=== PATIENT | female | born 1985 | race Caucasian/White ===

== ENCOUNTER → 2016-10-31 | Outpatient (REF) | payer OTHER ==
[~2016-10-31] MED LIST: ACET50TA PO; IBUP60TA PO; LEVO137T2 PO; PREN27TA3 PO
== END ==
LOC: M LAB REF 13:11
PROVIDERS: ATTEND Advanced Practice Midwife
DX: Z12.4 Encounter for screening for malignant neoplasm of cervix (principal)

== ENCOUNTER → 2017-09-11 | Outpatient (CLI) | payer OTHER | LOC: M SMT 14:44 | DX: Z34.82 Encounter for supervision of other normal pregnancy, second trimester (principal); Z3A.19 19 weeks gestation of pregnancy | CPT/HCPCS: 76811 ==

== ENCOUNTER → 2017-10-30 | Outpatient (CLI) | payer OTHER ==
[2017-10-30 17:56] LABS: GLUCOSE CHALLENGE TEST 1 HOUR 121 MG/DL (LESS THAN 140)
[2017-10-30 17:56] LABS: FREE T4 1.08 NG/DL (0.76-1.46)
[2017-10-30 18:28] LABS: HEMATOCRIT 33.1 % (36.0-47.0); HEMOGLOBIN 10.9 g/dl (12.0-16.0); MEAN CORPUSCULAR HEMOGLOBIN 27.9 pg (27.0-33.0); MEAN CORPUSCULAR HGB CONC 32.9 g/dl (32.0-36.5); MEAN CORPUSCULAR VOLUME 84.9 fl (80.0-96.0); PLATELET COUNT, AUTOMATED 209 10^3/uL (150-450); WHITE BLOOD COUNT 9.1 10^3/uL (4.0-10.0)
[2017-10-31 08:53] LABS: TYPE AND SCREEN 1 1
== END ==
LOC: M SMT 13:08
DX: Z36.89 Encounter for other specified antenatal screening (principal); Z3A.27 27 weeks gestation of pregnancy
CPT/HCPCS: 82950

== ENCOUNTER → 2018-01-03 | Outpatient (REF) | payer OTHER | LOC: M LAB REF 13:13 | DX: Z34.83 Encounter for supervision of other normal pregnancy, third trimester (principal) ==

== ENCOUNTER 2018-01-26 10:27 | Outpatient (CLI) | payer OTHER ==
[2018-01-26 11:29] LABS: HEMOGLOBIN 12.4 g/dl (12.0-15.5); MEAN CORPUSCULAR HEMOGLOBIN 27.3 pg (27.0-33.0); MEAN CORPUSCULAR HGB CONC 33.5 g/dl (32.0-36.5); MEAN CORPUSCULAR VOLUME 81.5 fl (80.0-96.0); PLATELET COUNT, AUTOMATED 208 10^3/uL (150-450); RED BLOOD COUNT 4.54 10^6/uL (4.00-5.40); RED CELL DISTRIBUTION WIDTH 17.2 % (11.5-14.5); WHITE BLOOD COUNT 11.4 10^3/uL (4.0-10.0)
[2018-01-26 11:40] LABS: INR 0.93; PROTHROMBIN TIME 12.5 SECONDS (12.4-14.5)
[2018-01-26 11:41] LABS: FIBRINOGEN 569 MG/DL (221-452)
[2018-01-26] MEDS: ACETAMINOPHEN 500 MG TAB PO (13:25)
== END 2018-01-26 15:15 | disposition home or self-care (01) ==
LOC: M LDO 10:27
DX: Z04.3 Encounter for examination and observation following other accident (principal); O99.89 Other specified diseases and conditions complicating pregnancy, childbirth and the puerperium; W19.XXXA Unspecified fall, initial encounter; Y92.89 Other specified places as the place of occurrence of the external cause; Y93.89 Activity, other specified; Y99.8 Other external cause status; Z3A.39 39 weeks gestation of pregnancy
CPT/HCPCS: 59025

== ENCOUNTER → 2022-01-31 | Outpatient (CLI) | payer OTHER ==
[~2022-01-31] MED LIST changes: -ACET50TA PO; +IBUP-1114 PO; +IBUP600T42 PO; -IBUP60TA PO; +IRON50TA PO; +MAPA500T2 PO
== END ==
LOC: M WHC 15:03
PROVIDERS: ATTEND Advanced Practice Midwife
DX: N92.4 Excessive bleeding in the premenopausal period (principal)

== ENCOUNTER → 2022-05-04 | Outpatient (REF) | payer OTHER | LOC: M SFHCWAGY 17:31 | PROVIDERS: ATTEND Obstetrics & Gynecology | DX: Z12.4 Encounter for screening for malignant neoplasm of cervix (principal) | CPT/HCPCS: 87624; G0123 ==

== ENCOUNTER → 2023-04-11 | Outpatient (REF) | payer OTHER ==
[~2023-04-11] MED LIST changes: +LORY1TAB2 PO
[2023-04-11 14:33] LABS: CLOSTRIDIUM DIFFICILE PCR NEGATIVE (NEGATIVE)
== END ==
LOC: M LAB REF 12:43
PROVIDERS: ATTEND Internal Medicine Gastroenterology
DX: R19.7 Diarrhea, unspecified (principal)

== ENCOUNTER 2023-04-23 08:25 | Day surgery (SDC) | payer OTHER ==
[~2023-04-23] VITALS: Ht 172.7 cm; Wt 98.0 kg
[~2023-04-23 08:25] MED LIST changes: +NS 1,000 ML IV ONE
[2023-04-23 10:37] VITALS: TEMP 97.9
[2023-04-23 11:18] VITALS: BP 135/88; O2SAT 100
== END 2023-04-23 11:31 | disposition home or self-care (01) ==
LOC: M OPP 08:25
PROVIDERS: ATTEND Internal Medicine Gastroenterology
DX: Q43.8 Other specified congenital malformations of intestine (principal); K64.8 Other hemorrhoids; E03.9 Hypothyroidism, unspecified; K58.9 Irritable bowel syndrome, unspecified; Z79.899 Other long term (current) drug therapy; Z83.3 Family history of diabetes mellitus; Z82.49 Family history of ischemic heart disease and other diseases of the circulatory system; Z81.8 Family history of other mental and behavioral disorders; Z83.49 Family history of other endocrine, nutritional and metabolic diseases

== ENCOUNTER → 2023-05-28 | Outpatient (REF) | payer OTHER ==
[~2023-05-28] MED LIST changes: -NS 1,000 ML IV ONE
[2023-05-28 18:02] LABS: APPEARANCE, URINE CLEAR (CLEAR); BACTERIA, URINE AUTO 1+ (NEGATIVE); BILIRUBIN, URINE AUTO NEGATIVE (NEGATIVE); BLOOD, URINE BLOOD NEGATIVE (NEGATIVE); COLOR, URINE STRAW (YELLOW); GLUCOSE, URINE (UA) AUTO NEGATIVE (NEGATIVE); KETONE, URINE AUTO NEGATIVE (NEGATIVE); LEUKOCYTE ESTERASE, URINE AUTO NEGATIVE (NEGATIVE); NITRITE, URINE AUTO NEGATIVE (NEGATIVE); PROTEIN, URINE AUTO NEGATIVE (NEGATIVE); RBC, URINE AUTO 0 /HPF (0-3); SPECIFIC GRAVITY URINE AUTO 1.003 (1.002-1.035); SQUAMOUS EPITHELIAL CELL UR AU 1 /HPF (0-6); UROBILINOGEN, URINE AUTO 0.2 mg/dL (0.0-2.0); WBC, URINE AUTO 2 /HPF (0-3)
== END ==
LOC: M PLALAB 15:37
PROVIDERS: ATTEND Obstetrics & Gynecology
DX: R35.0 Frequency of micturition (principal)

== ENCOUNTER → 2023-11-01 | Outpatient (CLI) | payer OTHER | LOC: M SLEEP HO 14:49 | PROVIDERS: ATTEND Nurse Practitioner Adult Health | DX: G47.30 Sleep apnea, unspecified (principal) ==

== ENCOUNTER → 2023-11-08 | Outpatient (REF) | payer OTHER ==
[2023-11-08 14:35] LABS: CLOSTRIDIUM DIFFICILE PCR NEGATIVE (NEGATIVE)
== END ==
LOC: M LAB REF 12:21
PROVIDERS: ATTEND Internal Medicine Gastroenterology
DX: Z14.1 Cystic fibrosis carrier (principal)

== ENCOUNTER → 2023-12-10 | Outpatient (CLI) | payer OTHER ==
[~2023-12-10] MED LIST changes: +PROHANCE 279.3MG/ML 15ML VIAL ONE; +PROHANCE 279.3MG/ML 5ML VIAL ONE
== END ==
LOC: M PLAIMG 07:32
PROVIDERS: ATTEND Internal Medicine Gastroenterology
DX: Z14.1 Cystic fibrosis carrier (principal)
CPT/HCPCS: 74183; A9576

== ENCOUNTER → 2024-05-25 | Outpatient (CLI) | payer OTHER ==
[~2024-05-25] MED LIST changes: -PROHANCE 279.3MG/ML 15ML VIAL ONE; -PROHANCE 279.3MG/ML 5ML VIAL ONE
== END ==
LOC: M WUC 11:27
PROVIDERS: ATTEND Nurse Practitioner Family
DX: K86.89 Other specified diseases of pancreas (principal); K59.1 Functional diarrhea; R14.3 Flatulence

== ENCOUNTER → 2024-12-22 | Outpatient (REF) | payer OTHER ==
[2024-12-22 18:25] LABS: FREE T3 3.4 PG/ML (2.3-4.2); FREE T4 1.42 NG/DL (0.89-1.76); THYROID STIMULATING HORMONE 1.252 uIU/ML (0.55-4.78)
== END ==
LOC: M LABDRWAD 17:23
PROVIDERS: ATTEND Family Medicine
DX: E03.9 Hypothyroidism, unspecified (principal)

== ENCOUNTER → 2025-04-23 | Outpatient (CLI) | payer OTHER ==
[~2025-04-23] MED LIST changes: +E-Z-PAQUE 96% w/w SUSP 176 GM BTL As Ordered ONE
== END ==
LOC: M RAD 08:51
PROVIDERS: ATTEND Nurse Practitioner Family
DX: K90.0 Celiac disease (principal); R19.5 Other fecal abnormalities; R14.3 Flatulence; R19.7 Diarrhea, unspecified